=== PATIENT | female | born 1970 | race Caucasian/White ===

== ENCOUNTER 2016-09-25 10:17 | Emergency (ER) | payer BC ==
[~2016-09-25] VITALS: Ht 167.6 cm; Wt 95.3 kg
[~2016-09-25 10:17] MED LIST: BCPILLS PO; GLC500 PO; LISI-787 PO; SPIR50TA2 PO
[2016-09-25 10:20] VITALS: TEMP 36.7; Ht 167.6 cm; Wt 95.3 kg
--- NOTE | 2016-09-25 10:37 | EMERGENCY ROOM VISIT NOTE ---
ED Visit Note First contact with patient: 10:23 CHIEF COMPLAINT: knee pain HISTORY OF PRESENT ILLNESS: This 45-year-old female patient presents to the emergency department ambulatory for evaluation of right knee painides their knee. There is pain diffusely over the knee. They rate the pain as sharp and 6/10. The patient states they are barely able to walk on it. No numbness or tingling. No ankle, foot or hip pain. The patient states that last fall she had pain in this knee. She saw her family doctor and was prescribed physical therapy. She started physical therapy but it did not seem to help. She saw orthopedics and was given an injection and physical therapy. She states that it got better. 2 months ago she [place] amusement park and states she "[place] " her right knee. She has had pain since then. She saw her family doctor 2 weeks ago and had another cortisone injection. She states she is not having any improvement. She states the pain was worse yesterday. She denies any fevers. She denies any redness or warmth. She denies any falls or injuries. She denies back pain. She states she feels that her sciatica is aggravated because she has had an antalgic gait. She denies any true back pain. She denies any numbness, tingling, weakness. She denies any loss of bowel or bladder control. REVIEW OF SYSTEMS: A 6 system review of systems was completed with positives and pertinent negatives listed in the HPI. ALLERGIES: Erythromycin MEDICATIONS: Spironolactone, metformin, Zestoretic, Sulindac PMH: Arthritis SOCIAL HISTORY: Patient lives locally with family she does not smoke PHYSICAL EXAM: Vital Signs: Reviewed Nurse's notes, vital signs stable. GENERAL : This is a 45-year-old female, no acute distress, but appears in pain, well- developed, well-nourished. MENTAL STATUS: Alert, oriented to person place and time, and cooperative. MUSCULOSKELETAL: The right knee is none swollen. There is no ecchymosis. There is no significant joint effusion present. The patient is tender diffusely over the knee. There is. No joint line tenderness. The patella does not subluxate. Range of motion is intact. Strength of the quads and hamstrings is 5/5. Karin's is negative. Rod's and Anterior Drawer tests are negative for obvious laxity . There is no obvious laxity with varus and valgus stressing. The foot and toes are warm and well-perfused. Dorsalis pedis pulse 2+. Sensation to pain and light touch is intact. Capillary refill less than 2 seconds. EMERGENCY DEPARTMENT COURSE: I examined the patient. X-rays of the right knee were reviewed by myself and read by radiology and reveal no fracture, dislocation or large effusion. The patient was placed in a knee immobilizer under my direction and the position was satisfactory. She declined crutches or pain medication. The patient was discharged home in good condition. RIGHT KNEE 3 VIEWS CLINICAL HISTORY: right knee pain Right trauma. Pain. COMPARISON: None. DISCUSSION: The bones and joint spaces appear intact. There is no evidence of fracture, dislocation or bony disease. There is no evidence for soft tissue swelling. IMPRESSION: Negative study. Current/Historical Medications Scheduled Control Pills ( Control Pills), 1 TAB PO DAILY Lisinopril/Hctz (Zestoretic 20MG/12.5MG), 0.5 TAB PO DAILY Metformin Hcl (Glucophage), 1,000 MG PO BID Spironolactone (Aldactone), 50 MG PO BID Sulindac (Sulindac), 1 TAB PO BID Allergies Coded Allergies: Erythromycin (Verified Adverse Reaction, Mild, NAUSEA, 09/25/16) Vital Signs Date Time Temp Pulse Resp B/P (MAP) Pulse Ox O2 Delivery O2 Flow Rate FiO2 09/25/16 11:36 92 16 138/70 96 09/25/16 10:20 36.7 104 18 144/76 97 Room Air Departure Information Impression Primary Impression: Knee pain Dispostion Home / Self-Care Condition GOOD Referrals Saida Herrera (PCP) Andrew Barone D.O. Patient Instructions Knee Pain, My [facility] [employer], Swelling Knee Pain Reduce Additional Instructions Continue your medications as prescribed Use the immobilizer when up and about. Contact orthopedics for a follow up appointment Return with worsening symptoms Problem Qualifiers Primary Impression: Knee pain Chronicity: acute Laterality: right Qualified Codes: M25.561 - Pain in right knee
[2016-09-25] MEDS ORDERED: CLN150 PO (10:39)
[2016-09-25] MEDS ORDERED: METF1000 PO (10:39)
--- NOTE | 2016-09-25 11:07 | DIAGNOSTIC IMAGING REPORT ---
RIGHT KNEE 3 VIEWS CLINICAL HISTORY: right knee pain Right trauma. Pain. COMPARISON: None. DISCUSSION: The bones and joint spaces appear intact. There is no evidence of fracture, dislocation or bony disease. There is no evidence for soft tissue swelling. IMPRESSION: Negative study. The above report was generated using voice recognition software. It may contain grammatical, syntax or spelling errors. Electronically signed by: Fermín Gill M.D. 09/25/2016 11:05 AM Dictated Date/Time: 09/25/2016 11:05 AM
[2016-09-25 11:36] VITALS: BP 138/70; PULSE 92; O2SAT 96
== END 2016-09-25 11:37 | disposition home or self-care (01) ==
LOC: C.EDB 10:18
DX: M25.561 Pain in right knee (principal); M19.90 Unspecified osteoarthritis, unspecified site; Z79.84 Long term (current) use of oral hypoglycemic drugs; Z79.899 Other long term (current) drug therapy; Z88.3 Allergy status to other anti-infective agents